=== PATIENT | male | born 1940 | race African-American/Black ===

== ENCOUNTER → 2018-04-06 | Outpatient (CLI) | payer BC, MEDICARE ==
--- NOTE | 2018-04-06 08:43 | RADIOLOGY REPORT (SQ) ---
EXAM DESCRIPTION: CT ABD/PELVIS NO ORAL OR IV COMPLETED DATE/TIME: 04/06/2018 7:25 am REASON FOR STUDY: URINARY CALCULUS (N20.9) N20.9 URINARY CALCULUS, UNSPECIFIED COMPARISON: None. TECHNIQUE: CT scan of the abdomen and pelvis performed without intravenous or oral contrast. Images reviewed with lung, soft tissue, and bone windows. Reconstructed coronal and sagittal MPR images revi ewed. All images stored on PACS. All CT scanners at this facility use dose modulation, iterative reconstruction, and/or weight based d osing when appropriate to reduce radiation dose to as low as reasonably achievable (ALARA). [facility]: Dose Right [facility]: CareDose [facility]: Dose Right [facility]: Teradose 4D [facility]: [employer] RADIATION DOSE: CT Rad equipment meets quality standard of care and radiation dose reduction techniq ues were employed. CTDIvol: 8.7 mGy. DLP: 491 mGy-cm.mGy. LIMITATIONS: None. FINDINGS: LOWER CHEST: Linear densities in lung bases consistent with chronic scarring. Coronary ar phoebe calcification. NON-CONTRASTED LIVER, SPLEEN, ADRENALS: LIVER:No abnormality seen. SPLEEN: No abnormality seen. A DRENALS: No abnormality seen. PANCREAS: No abnormality seen. GALLBLADDER: No abnormality seen RIGHT KIDNEY AND URETER: Multiple cortical and parapelvic cysts of the right kidney. Cortical cyst u pper pole right kidney with wall calcification LEFT KIDNEY AND URETER: Multiple cortical and parapelvic cysts of the left kidney. AORTA AND RETROPERITONEUM: Atherosclerotic change of the abdominal aorta, iliac ,and femoral vessels . BOWEL AND PERITONEAL CAVITY: No obvious masses or inflammatory changes. No free fluid. APPENDIX: Normal. PELVIS, BLADDER, AND ABDOMINAL WALL :URINARY BLADDER: There is thickening of the bladder wall drug abuse counselor ior left side. The possibility mucosal abnormality is not excluded. Mild ectasia of the distal left ureter in this region noted. There is a diverticulum noted from the posterior bladder at the UV ju nction on the left and 2 diverticuli adjacent to the UV junction on the right. PROSTATE: Prostate seeds in place. LARGE AND SMALL BOWEL: Changes of left inguinal hernia containing colon. Diverticu losis. BONES: Multilevel lumbar spondylosis with degenerative disc disease. 6 lumbar type vertebra. Degene rative disc disease from L4- L6. Degenerative anterolisthesis of L5 on L6. Degenerative anterolisth esis of L4 on L5. Relative narrowing of the spinal canal consistent with spinal stenosis at L4-5 and L5-6. Developmental deformity of the sacrum. IMPRESSION: 1. There is asymmetric thickening of the mucosa of the posterior left side of the urina ry bladder with ectasia of distal left ureter at UV junction. The possibility of mucosal abnormality in this region cannot be excluded. Consider urologyconsult. Status post brachytherapy of the prost ate. 2. Left inguinal hernia containing loop of rectosigmoid colon. 3. Multiple cortical and parapelvic cysts of the kidneys. COMMENT: Quality ID # [id number]: Final reports with documentation of one or more dose reduction techniques (e.g., Automated exposure control, adjustment of the mA and/or kV according to patient size, use of iterative reconstruction technique) TECHNICAL DOCUMENTATION: JOB ID: [id number] SC-69 2010 [employer]- All Rights Reserved Reading location - IP/workstation name: [email or web address]
== END ==
LOC: RAD 07:06
PROVIDERS: ATTEND Family Medicine
DX: N20.9 Urinary calculus, unspecified (principal); N32.3 Diverticulum of bladder; K40.90 Unilateral inguinal hernia, without obstruction or gangrene, not specified as recurrent; Q61.02 Congenital multiple renal cysts; K57.90 Diverticulosis of intestine, part unspecified, without perforation or abscess without bleeding
CPT/HCPCS: 74176

== ENCOUNTER → 2018-05-20 | Outpatient (CLI) | payer MEDICARE ==
--- NOTE | 2018-05-20 10:43 | RADIOLOGY REPORT (SQ) ---
EXAM DESCRIPTION: CT ABD/PELVIS WITH IV ONLY COMPLETED DATE/TIME: 05/20/2018 10:14 am REASON FOR STUDY: HEMATURIA (R31.9) R31.9 HEMATURIA, UNSPECIFIED COMPARISON: 04/06/2018 TECHNIQUE: CT scan of the abdomen and pelvis performed using helical scanning technique with dynamic intravenous contrast injection. No oral contrast. Images reviewed with lung, soft tissue, and bone windows. Reconstructed coronal and sagittal MPR images reviewed. Delayed images for evaluation of the urinary system also acquired. All images stored on PACS. All CT scanners at this facility use dose modulation, iterative reconstruction, and/or weight based d osing when appropriate to reduce radiation dose to as low as reasonably achievable (ALARA). [facility]: Dose Right [facility]: CareDose [facility]: Dose Right [facility]: Teradose 4D [facility]: [employer] CONTRAST TYPE AND DOSE: contrast/concentration: Isovue 300.00 mg/ml; Total Contrast Delivered: 95.0 ml; Total Saline Delivered: 71.0 ml RENAL FUNCTION: Creatinine 1.6 RADIATION DOSE: CT Rad equipment meets quality standard of care and radiation dose reduction techniq ues were employed. CTDIvol: NaN - NaN mGy. DLP: 0 mGy-cm.. LIMITATIONS: None. FINDINGS: LOWER CHEST: There is a 4.8 mm nodule in the right middle lobe. This appears new from ariane or study. It possibly represents focal atelectasis or scarring. Please see below for recommended fo llow-up. LIVER: Normal size. No masses. No dilated ducts. SPLEEN: Normal size. No focal lesions. PANCREAS: No masses. No significant calcifications. No adjacent inflammation or peripancreatic fluid collections. Pancreatic duct not dilated. GALLBLADDER: No identified stones by CT criteria. No inflammatory changes to suggest cholecystitis. ADRENAL GLANDS: No significant masses or asymmetry. RIGHT KIDNEY AND URETER: No solid masses. Multiple parapelvic and cortical cysts. No significant c alcifications. No hydronephrosis or hydroureter. LEFT KIDNEY AND URETER: No solid masses. Multiple parapelvic and cortical cysts. No significant ca lcifications. No hydronephrosis or hydroureter. AORTA AND VESSELS: No aneurysm. No dissection. Renal arteries, SMA, celiac without stenosis. RETROPERITONEUM: No retroperitoneal adenopathy, hemorrhage or masses. BOWEL AND PERITONEAL CAVITY: No masses or inflammatory changes. No free fluid or peritoneal masses. APPENDIX: Normal. PELVIS: There is an enhancing bladder mass. This measures approximately 4 x 2.4 cm in greatest diame ter. Prostate implant seeds are again noted. ABDOMINAL WALL: Left inguinal hernia is again noted containing colon. BONES: No significant or acute findings. OTHER: No other significant finding. IMPRESSION: Enhancing bladder mass along the left posterolateral wall. Recommend cystoscopy for fur ther evaluation. Multiple stable bilateral cortical and parapelvic cysts. TECHNICAL DOCUMENTATION: JOB ID: [id number] Quality ID # [id number]: Final reports with documentation of one or more dose reduction techniques (e.g., Au tomated exposure control, adjustment of the mA and/or kV according to patient size, use of iterative reconstruction technique) 2010 [employer]- All Rights Reserved Reading location - IP/workstation name: [email or web address]
== END ==
LOC: RAD 09:25
PROVIDERS: ATTEND Urology
DX: R31.9 Hematuria, unspecified (principal)
CPT/HCPCS: 74177; 82565

== ENCOUNTER → 2018-07-22 | Outpatient (CLI) | payer MEDICARE ==
--- NOTE | 2018-07-22 14:35 | RADIOLOGY REPORT (SQ) ---
EXAM DESCRIPTION: U/S RETROPERITON (RENAL/AORTA) COMPLETED DATE/TIME: 07/22/2018 2:24 pm REASON FOR STUDY: UNSPECIFIED HYDRONEPHROSIS,GROSS HEMATURIA N13.30 UNSPECIFIED HYDRONEPHROSIS R31. 0 GROSS HEMATURIA COMPARISON: CT abdomen pelvis dated 05/20/2018 TECHNIQUE: Dynamic and static grayscale images acquired of the kidneys and bladder and recorded on P ACS. Additional selected color Doppler and spectral images recorded. LIMITATIONS: None. FINDINGS: RIGHT KIDNEY: The right kidney measures 14.1 cm in length. Normal echogenicity. Multi ple right renal cysts. The largest measures 5.5 x 5.2 x 6.2 cm. No hydronephrosis. No calcificat ions. LEFT KIDNEY: The left kidney measures 13.4 cm in length. Normal echogenicity. Multiple left isabella l cysts. The largest measures 5.2 x 4.9 x 3.7 cm. There is mild dilatation of the left renal pelvi s and calices which is unchanged from prior CT. No calcifications. BLADDER: Bladder mass demonstrated on CT is poorly visualized. OTHER FINDINGS: No other significant finding. IMPRESSION: 1. Bilateral renal cysts. Persistent dilatation of the left renal pelvis. 2. Bladder mass noted on prior CT is not appreciated. TECHNICAL DOCUMENTATION: JOB ID: [id number] [employer]- All Rights Reserved Reading location - IP/workstation name: [email or web address]
[2018-07-22 15:31] LABS: ANION GAP 10 (5-19); BLOOD UREA NITROGEN 29 mg/dL (7-20); CALCIUM 9.5 mg/dL (8.4-10.2); CARBON DIOXIDE 26 mmol/L (22-30); CHLORIDE 103 mmol/L (98-107); GLUCOSE 86 mg/dL (75-110); POTASSIUM 4.4 mmol/L (3.6-5.0); SODIUM 138.6 mmol/L (137-145)
== END ==
LOC: RAD 13:26
PROVIDERS: ATTEND Urology
DX: N13.30 Unspecified hydronephrosis (principal); R31.0 Gross hematuria; N28.1 Cyst of kidney, acquired
CPT/HCPCS: 36415; 76770; 80048

== ENCOUNTER 2018-08-31 00:41 | Emergency (ER) | payer MEDICARE ==
[2018-08-31] MEDS ORDERED: LIDOCAINE 2% URO-JET 5 ML KIT MM ONE (02:49)
--- NOTE | 2018-08-31 03:42 | ER Document Report ---
ED General - General TRAVEL OUTSIDE OF THE [place] IN LAST 30 DAYS: No - General Chief Complaint: Urinary Retention Stated Complaint: TROUBLE URNIATING Time Seen by Provider: 08/31/18 02:18 Primary Care Provider: ZAKIYA DRUMMOND MD [Primary Care Provider] - Follow up as needed Notes: Patient is a 78-year-old male with past medical history of bladder cancer who presents with difficulty urinating and having hematuria. Patient states that he has had this many times in the past, follows at [facility] for bladder cancer. Has had to have a catheter placed in the past due to this issue. Describes a throbbing, aching, constant discomfort to his suprapubic abdominal quadrant worsened when he feels that he is unable to urinate. States that he is passing small amounts of blood clots intermittently but is mostly having red urine. The patient denies fever, flank pain or vomiting. Has not contacted his primary care doctor regarding today's concerns. Regards symptoms as being severe and constant. (GUILLERMO HANNA) - Related Data Allergies/Adverse Reactions: No Known Allergies Allergy (Verified 08/31/18 00:42) Past Medical History - General Information source: Patient - Social History Smoking Status: Never Smoker Frequency of alcohol use: None Drug Abuse: None Lives with: Spouse/Significant other Family History: Reviewed & Not Pertinent Patient has suicidal ideation: No Patient has homicidal ideation: No - Past Medical History Cardiac Medical History: Reports: Hx Hypertension Renal/ Medical History: Denies: Hx Peritoneal Dialysis Review of Systems - Review of Systems Notes: Constitutional: Negative for fever. HENT: Negative for sore throat. Eyes: Negative for visual changes. Cardiovascular: Negative for chest pain. Respiratory: Negative for shortness of breath. Gastrointestinal: Positive for suprapubic abdominal discomfort Genitourinary: Positive for hematuria Musculoskeletal: Negative for back pain. Skin: Negative for rash. Neurological: Negative for headaches, weakness or numbness. 10 point ROS negative except as marked above and in HPI. (GUILLERMO HANNA) Physical Exam - Vital signs Interpretation: Hypertensive - Vital signs Vitals: Temp Pulse Resp BP Pulse Ox 98.2 F 95 20 174/89 H 97 08/31/18 00:47 08/31/18 00:47 08/31/18 00:47 08/31/18 00:47 08/31/18 00:47 Notes: PHYSICAL EXAMINATION: GENERAL: Well-appearing, well-nourished and in no acute distress. HEAD: Atraumatic, normocephalic. EYES: Pupils equal round and reactive to light, extraocular movements intact, sclera anicteric, conjunctiva are normal. ENT: nares patent, oropharynx clear without exudates. Moist mucous membranes. NECK: Normal range of motion, supple without lymphadenopathy LUNGS: Breath sounds clear to auscultation bilaterally and equal. No wheezes rales or rhonchi. HEART: Regular rate and rhythm without murmurs ABDOMEN: Soft, nontender, normoactive bowel sounds. No guarding, no rebound. No masses appreciated. EXTREMITIES: Normal range of motion, no pitting or edema. No cyanosis. NEUROLOGICAL: No focal neurological deficits. Moves all extremities spontaneously and on command. PSYCH: Normal mood, normal affect. SKIN: Warm, Dry, normal turgor, no rashes or lesions noted. (GUILLERMO HANNA) Course - Re-evaluation Re-evalutation: 08/31/18 03:44 Patient presents with acute urinary retention in the setting of bladder cancer and hematuria. Rubio catheter was placed after patient had just attempted to urinate and 500 cc of urine was removed. Rubio catheter will remain in place with a leg bag to prevent further urinary retention and he will follow-up with urology for trial of void. Urinalysis is pending. Suspect that this is likely secondary to underlying bladder cancer and patient likewise states this is exactly the same as when this is happened in the past. (GUILLERMO HANNA) 08/31/18 05:35 Patient's urinalysis is negative for infection. He has some white blood cells but no back to be in the urine and no leukocyte Estrace. His urine has been sent for culture. I informed patient and his that if it grows out a bacteria that needs treatment we would call him immediately. Does not have a fever and overall looks very well. Evaluation of his catheter bag shows the urine is becoming much more clear and only has very slight du color to it. I informed him of Dr. Hanna's plan to keep the catheter in place. Informed patient follow-up with his doctor next to 3 days for reevaluation and possible catheter removal. If he is unable to follow-up with his doctor then he can return here and we will reevaluate him determine whether not catheter removed at that time. Patient agrees with plan will be discharged home. Patient to return to ER immediately if he has severe pain, inability to pass urine to the catheter, fevers, or if he feels unwell. Dictation of this chart was performed using voice recognition software; therefore, there may be some unintended grammatical errors. (GUILLERMO ARELLANO) - Vital Signs Vital signs: Temp Pulse Resp BP Pulse Ox 98.2 F 95 20 174/89 H 97 08/31/18 00:47 08/31/18 00:47 08/31/18 00:47 08/31/18 00:47 08/31/18 00:47 - Laboratory Laboratory results interpreted by me: 08/31/18 03:15 Urine Protein 30 H Urine Blood LARGE H Discharge - Discharge Clinical Impression: Urinary retention Hematuria Qualifiers: Hematuria type: gross Qualified Code(s): R31.0 - Gross hematuria Condition: Good Disposition: HOME, SELF-CARE Additional Instructions: Please follow-up with your urologist within the next 48 hours for a trial of void to see if the catheter can come out. Return if you have a fever of greater than 100.4 F, worsening pain, stop passing urine into the catheter, or have any other symptoms that are worrisome to you. Referrals: ZAKIYA DRUMMOND MD [Primary Care Provider] - Follow up as needed
[2018-08-31 05:14] LABS: BILIRUBIN,URINE NEGATIVE (NEGATIVE); GLUCOSE, URINE NEGATIVE (NEGATIVE); KETONES,URINE NEGATIVE (NEGATIVE); LEUKOCYTE ESTERASE,URINE NEGATIVE (NEGATIVE); NITRITE,URINE NEGATIVE (NEGATIVE); PROTEIN,URINE 30 mg/dL (NEGATIVE); URINE SPECIFIC GRAVITY 1.005; UROBILINOGEN,URINE NEGATIVE mg/dL (<2.0)
[2018-08-31 05:16] LABS: COLOR,URINE RED
[2018-08-31 05:17] LABS: APPEARANCE,URINE TURBID
[2018-08-31 05:44] VITALS: BP 136/76
== END 2018-08-31 05:45 | disposition home or self-care (01) ==
LOC: ER 00:41
DX: R33.9 Retention of urine, unspecified (principal); C67.9 Malignant neoplasm of bladder, unspecified; R31.0 Gross hematuria; I10 Essential (primary) hypertension; Z85.51 Personal history of malignant neoplasm of bladder
CPT/HCPCS: 99283; 51702; 87086; 81001; A9270; J3490

== ENCOUNTER 2018-08-31 20:22 | Emergency (ER) | payer MEDICARE ==
[2018-08-31 20:38] VITALS: BP 159/94
--- NOTE | 2018-08-31 23:04 | ER Document Report ---
ED Medical Screen (RME) - General Chief Complaint: Problem with Urinary Catheter Stated Complaint: CATHETER PROBLEM Time Seen by Provider: 08/31/18 23:00 Primary Care Provider: ZAKIYA DRUMMOND MD [Primary Care Provider] - Follow up as needed Mode of Arrival: Ambulatory Information source: Patient Notes: Patient was discharged from the ED with a Rubio catheter placed due to hematuria and an inability to void. Patient presents tonight with complaints that he is having leakage around the Rubio from his penis does have dean colored urine to leg bag as well. Patient states that he has noticed some small clots to the back. Patient denies any abdominal pain or feeling as though he needs to void. I have greeted and performed a rapid initial assessment of this patient. A comprehensive ED assessment and evaluation of the patient, analysis of test results and completion of the medical decision making process will be conducted by additional ED providers. TRAVEL OUTSIDE OF THE [place].S. IN LAST 30 DAYS: No - Related Data Allergies/Adverse Reactions: No Known Allergies Allergy (Verified 08/31/18 00:42) Past Medical History - Social History Frequency of alcohol use: None Drug Abuse: None - Past Medical History Cardiac Medical History: Reports: Hx Hypertension Renal/ Medical History: Denies: Hx Peritoneal Dialysis Past Surgical History: Reports: Hx Orthopedic Surgery - left knee replacement, Hx Urinary Tract Surgery - bladder surgery Physical Exam - Vital signs Vitals: Temp Pulse Resp BP Pulse Ox 98.5 F 78 17 159/94 H 94 08/31/18 20:36 08/31/18 20:36 08/31/18 20:36 08/31/18 20:36 08/31/18 20:36 - General Notes: Rubio leg bag with dean colored urine Course - Vital Signs Vital signs: Temp Pulse Resp BP Pulse Ox 98.5 F 78 17 159/94 H 94 08/31/18 20:36 08/31/18 20:36 08/31/18 20:36 08/31/18 20:36 08/31/18 20:36 Doctor's Discharge - Discharge Referrals: ZAKIYA DRUMMOND MD [Primary Care Provider] - Follow up as needed
--- NOTE | 2018-09-01 02:20 | ER Document Report ---
ED General - General Chief Complaint: Problem with Urinary Catheter Stated Complaint: CATHETER PROBLEM Time Seen by Provider: 08/31/18 23:00 Primary Care Provider: ZAKIYA DRUMMOND MD [Primary Care Provider] - Follow up as needed Mode of Arrival: Ambulatory Notes: Patient is a 78-year-old male who presents emergency department with a chief complaint of leakage from around his urinary catheter. He had a urinary catheter placed yesterday hematuria with clots. He denies any fever, or any other symptoms. He does states that it is draining at this time and since he was seen in triage she has not had any leakage around his catheter. TRAVEL OUTSIDE OF THE [place] IN LAST 30 DAYS: No - Related Data Allergies/Adverse Reactions: No Known Allergies Allergy (Verified 08/31/18 00:42) Past Medical History - General Information source: Patient - Social History Smoking Status: Never Smoker Frequency of alcohol use: None Drug Abuse: None Family History: Reviewed & Not Pertinent Patient has suicidal ideation: No Patient has homicidal ideation: No - Past Medical History Cardiac Medical History: Reports: Hx Hypertension Renal/ Medical History: Denies: Hx Peritoneal Dialysis Past Surgical History: Reports: Hx Orthopedic Surgery - left knee replacement, Hx Urinary Tract Surgery - bladder surgery Review of Systems - Review of Systems Notes: REVIEW OF SYSTEMS: CONSTITUTIONAL : Denies recent illness. Denies recent unintentional weight loss. Denies fever, chills, or sweats. EENT: Denies eye, ear, throat, or mouth pain, discharge, or symptoms. Denies nasal or sinus congestion. CARDIOVASCULAR: Denies chest pain. RESPIRATORY: Denies shortness of breath, cough, congestion, difficulty breathing, or wheezing. GASTROINTESTINAL: Denies nausea, vomiting, and diarrhea. Denies abdominal pain. Denies constipation. GENITOURINARY: See HPI MUSCULOSKELETAL: Denies neck and back pain. Denies joint pain or swelling. SKIN: Denies rash, itchiness, or lesions HEMATOLOGIC : Denies easy bruising or bleeding. LYMPHATIC: Denies swollen, painful, enlarged glands. NEUROLOGICAL: Denies no numbness or tingling denies weakness. Denies headache. Denies altered mental status. Denies alteration in speech. PSYCHIATRIC: Denies stress, anxiety, alteration in sleep patterns, or depression. All other systems reviewed and negative. Physical Exam - Vital signs Vitals: Temp Pulse Resp BP Pulse Ox 98.5 F 78 17 159/94 H 94 08/31/18 20:36 08/31/18 20:36 08/31/18 20:36 08/31/18 20:36 08/31/18 20:36 - Notes Notes: PHYSICAL EXAMINATION: GENERAL: Appears well, healthy, well-nourished, no acute distress. HEAD: Normocephalic, atraumatic. EYES: PERRL, conjunctiva normal, all extraocular movements intact, sclera nonicteric ENT: Moist mucous membranes. NECK: Supple, no noticeable swelling, redness, rash. Normal range of motion. LUNGS: Equal breath sounds bilaterally and clear to auscultation. No wheezes rales or rhonchi. CARDIOVASCULAR: S1-S2, regular rate, regular rhythm. Radial pulses 2+, normal. ABDOMEN: Normoactive bowel sounds. Soft, nontender, no guarding, no rebound tenderness, and no masses palpated. EXTREMITIES: Normal strength and range of motion, no pitting or edema. No cyanosis. NEUROLOGICAL: Moves all extremities upon command. Strength 5/5 in all extremities. PSYCH: Normal mood, normal affect. SKIN: Warm, dry. No rash, lesions, ulcerations noted. Normal skin turgor. : Urinary catheter in place with hematuria noted, no clots noted. Course - Re-evaluation Re-evalutation: 09/01/18 02:47 The nursing staff had to flush the Rubio catheter and was meeting resistance and more leakage was noted. We will take out the current history of Rubio catheter and replace it with a larger Pashto Rubio catheter. 09/01/18 03:19 Patient's Rubio catheter was removed and another urinary catheter was placed successfully. It is flowing well with no resistance met upon flushing. I do not suspect patient has any life-threatening etiology at this time. Verbal discharge instructions were given to the patient. They verbalized understanding. They are stable for discharge. - Vital Signs Vital signs: Temp Pulse Resp BP Pulse Ox 98.5 F 78 17 159/94 H 94 08/31/18 20:36 08/31/18 20:36 08/31/18 20:36 08/31/18 20:36 08/31/18 20:36 Discharge - Discharge Clinical Impression: Problem with urinary catheter Condition: Stable Disposition: HOME, SELF-CARE Additional Instructions: You were seen today in the emergency department for your urinary catheter leaking. Your catheter was changed here in the emergency department. Please follow-up with urology or the emergency department as directed from yesterday's visit. Referrals: ZAKIYA DRUMMOND MD [Primary Care Provider] - Follow up as needed
== END 2018-09-01 04:00 | disposition home or self-care (01) ==
LOC: ER 20:22
DX: T83.031A Leakage of indwelling urethral catheter, initial encounter (principal); Y84.6 Urinary catheterization as the cause of abnormal reaction of the patient, or of later complication, without mention of misadventure at the time of the procedure; I10 Essential (primary) hypertension
CPT/HCPCS: 51702; 99283

== ENCOUNTER 2018-09-05 16:00 | Emergency (ER) | payer MEDICARE ==
--- NOTE | 2018-09-05 19:17 | ER Document Report ---
Addendum entered and electronically signed by DARRICK SHARP PA-C 09/05/18 19:19: Course - Re-evaluation Re-evalutation: 09/05/18 19:17 Pt urinated and is gross hematuria and approx 90cc's. Pt does not feel like he had an incomplete void. - Vital Signs Vital signs: Temp Pulse Resp BP Pulse Ox 98.1 F 65 20 133/76 H 98 09/05/18 16:29 09/05/18 16:29 09/05/18 16:29 09/05/18 16:29 09/05/18 16:29 Original Note: ED Medical Screen (RME) - General Chief Complaint: Urinary Retention Stated Complaint: URINARY RETENSION Time Seen by Provider: 09/05/18 19:12 Primary Care Provider: ZAKIYA DRUMMOND MD [Primary Care Provider] - Follow up as needed TRAVEL OUTSIDE OF THE [place].S. IN LAST 30 DAYS: No - HPI Notes: 09/05/18 19:13 Patient is a 78-year-old male with a history of bladder cancer who presents requesting placement of a Rubio catheter. Patient states that he has been having urinary retention issues over the past 24 hours with hematuria noted. He was seen last week for similar symptoms and had a Rubio placed. Patient had the Rubio removed on Wednesday by his urologist and was noted to be able to void without difficulty at that time. Patient states that he had trouble urinating primarily this morning which has since improved, but patient does not want to go through symptoms like he did previously and would like a Rubio placed. He does have an appointment with his urologist next month for his bladder to be removed at [place]. He is otherwise eating and drinking without difficulty. Denies LARIOS, fever, neck pain, URI, CP, SOB, Abd pain, back pain, or rash. Pt states he called his urologist who wanted him eval'd for cath placement as their office was closing. I have treated and performed a rapid initial assessment of this patient. A comprehensive ED assessment and evaluation of the patient, analysis of test results and completion of medical decision making process will be conducted by additional ED providers. PHYSICAL EXAMINATION: GENERAL: Well-appearing, well-nourished and in no acute distress. A&Ox4. Answers questions appropriately. LUNGS: Breath sounds clear to auscultation bilaterally and equal. No wheezes rales or rhonchi. HEART: Regular rate and rhythm without murmurs, rubs, gallops. - Related Data Allergies/Adverse Reactions: No Known Allergies Allergy (Verified 08/31/18 00:42) Past Medical History - Past Medical History Cardiac Medical History: Reports: Hx Hypertension Renal/ Medical History: Denies: Hx Peritoneal Dialysis Past Surgical History: Reports: Hx Orthopedic Surgery - left knee replacement, Hx Urinary Tract Surgery - bladder surgery Physical Exam - Vital signs Vitals: Temp Pulse Resp BP Pulse Ox 98.1 F 65 20 133/76 H 98 09/05/18 16:29 09/05/18 16:29 09/05/18 16:29 09/05/18 16:29 09/05/18 16:29 Course - Vital Signs Vital signs: Temp Pulse Resp BP Pulse Ox 98.1 F 65 20 133/76 H 98 09/05/18 16:29 09/05/18 16:29 09/05/18 16:29 09/05/18 16:29 09/05/18 16:29 Doctor's Discharge - Discharge Referrals: ZAKIYA DRUMMOND MD [Primary Care Provider] - Follow up as needed
[2018-09-05 19:56] LABS: APPEARANCE,URINE SLIGHTLY-CLOUDY; BILIRUBIN,URINE NEGATIVE (NEGATIVE); COLOR,URINE RED; GLUCOSE, URINE 50 mg/dL (NEGATIVE); KETONES,URINE NEGATIVE (NEGATIVE); LEUKOCYTE ESTERASE,URINE MODERATE (NEGATIVE); NITRITE,URINE NEGATIVE (NEGATIVE); PROTEIN,URINE 100 mg/dL (NEGATIVE); URINE SPECIFIC GRAVITY 1.004; UROBILINOGEN,URINE NEGATIVE mg/dL (<2.0)
[2018-09-05] MEDS ORDERED: LIDOCAINE 2% URO-JET 5 ML KIT MM ONE (22:19)
--- NOTE | 2018-09-05 22:42 | ER Document Report ---
ED General - General Chief Complaint: Urinary Retention Stated Complaint: URINARY RETENSION Time Seen by Provider: 09/05/18 19:12 Primary Care Provider: ZAKIYA DRUMMOND MD [Primary Care Provider] - Follow up as needed Notes: Patient is a 78-year-old male with a history of bladder cancer who presents requesting placement of a Rubio catheter. Patient states that he has been having urinary retention issues over the past 24 hours with hematuria noted. He was seen last week for similar symptoms and had a Rubio placed. Patient had the Rubio removed on Wednesday by his urologist and was noted to be able to void with out difficulty at that time. Patient states that he had trouble urinating primarily this morning which has since improved, but patient does not want to go through symptoms like he did previously and would like a Rubio placed. He does have an appointment with his urologist next month for his bladder to be removed at [place]. He is otherwise eating and drinking without difficulty. Denies LARIOS, fever, neck pain, URI, CP, SOB, Abd pain, back pain, or rash. Pt states he called his urologist who wanted him eval'd for cath placement as their office was closing. TRAVEL OUTSIDE OF THE [place] IN LAST 30 DAYS: No - HPI Onset: Other Onset/Duration: Gradual Quality of pain: No pain Severity: None Pain Level: Denies Associated symptoms: None. denies: Chest pain, Diarrhea, Fever, Nausea, Vomiting, Shortness of breath Exacerbated by: Denies Relieved by: Denies Similar symptoms previously: Yes Recently seen / treated by doctor: Yes - Related Data Allergies/Adverse Reactions: No Known Allergies Allergy (Verified 08/31/18 00:42) Past Medical History - General Information source: Patient, Relative, [facility] Records - Social History Smoking Status: Never Smoker Chew tobacco use (# tins/day): No Frequency of alcohol use: None Drug Abuse: None Lives with: Family Family History: Reviewed & Not Pertinent Patient has suicidal ideation: No Patient has homicidal ideation: No - Past Medical History Cardiac Medical History: Reports: Hx Hypertension Renal/ Medical History: Denies: Hx Peritoneal Dialysis Past Surgical History: Reports: Hx Orthopedic Surgery - left knee replacement, Hx Urinary Tract Surgery - bladder surgery Review of Systems - Review of Systems Notes: REVIEW OF SYSTEMS: CONSTITUTIONAL : Denies fever, chills, or sweats. Denies recent illness. Denies weight loss, recent hospitalizations. EENT: Denies visual changes, eye pain. Denies sore throat, oral lesions, difficulty swallowing. CARDIOVASCULAR: Denies chest pain. Denies palpitations. Denies lower extremity edema. RESPIRATORY: Denies cough. Denies shortness of breath, wheezing. GASTROINTESTINAL: Denies abdominal pain or distention. Denies nausea, vomiting, or diarrhea. Denies blood in vomitus, stools, or per rectum. Denies black, tarry stools. Denies constipation. GENITOURINARY: + difficulty urinating, denies painful urination, frequency, +blood in urine, testicular pain or penile discharge. MUSCULOSKELETAL: Denies back or neck pain or stiffness. Denies joint pain or swelling. SKIN: Denies rash, lesions or sores. HEMATOLOGIC : Denies easy bruising or bleeding. LYMPHATIC: Denies swollen glands. NEUROLOGICAL: Denies confusion or altered mental status. Denies loss of consciousness. Denies dizziness or lightheadedness. Denies headache. Denies weakness or paralysis. Denies problems difficulty with ambulation, slurred speech. Denies sensory loss, numbness, or tingling. Denies seizures. PSYCHIATRIC: Denies anxiety or stress. Denies depression, suicidal ideation, or Physical Exam - Vital signs Vitals: Temp Pulse Resp BP Pulse Ox 98.1 F 65 20 133/76 H 98 09/05/18 16:29 09/05/18 16:29 09/05/18 16:29 09/05/18 16:29 09/05/18 16:29 - Notes Notes: PHYSICAL EXAMINATION: GENERAL: Well-appearing, well-nourished and in no acute distress. HEAD: Atraumatic, normocephalic. EYES: Pupils equal round and reactive to light, extraocular movements intact, sclera anicteric, conjunctiva are normal. ENT: Nares patent, oropharynx clear without exudates. Moist mucous membranes. NECK: Normal range of motion, supple without lymphadenopathy LUNGS: Breath sounds clear to auscultation bilaterally and equal. No wheezes rales or rhonchi. HEART: Regular rate and rhythm without murmurs ABDOMEN: Soft, nontender, nondistended abdomen. No guarding, no rebound. No masses appreciated. Musculoskeletal: Normal range of motion, no pitting or edema. No cyanosis. NEUROLOGICAL: Cranial nerves grossly intact. Normal speech, normal gait. Normal sensory, motor exams PSYCH: Normal mood, normal affect. SKIN: Warm, Dry, normal turgor, no rashes or lesions noted. Course - Re-evaluation Re-evalutation: Laboratory 09/05/18 19:20 Urine Color RED Urine Appearance SLIGHTLY-CLOUDY Urine pH 7.0 Ur Specific [place] 1.004 Urine Protein 100 H Urine Glucose (UA) 50 H Urine Ketones NEGATIVE Urine Blood LARGE H Urine Nitrite NEGATIVE Urine Bilirubin NEGATIVE Urine Urobilinogen NEGATIVE Ur Leukocyte Esterase MODERATE H Urine WBC (Auto) 108 Urine RBC (Auto) >182 Urine Bacteria (Auto) TRACE Urine WBC Clumps OCC Urine Mucus (Auto) RARE Urine Ascorbic Acid NEGATIVE Temp Pulse Resp BP Pulse Ox 98.1 F 58 L 16 138/75 H 99 09/05/18 16:29 09/05/18 21:42 09/05/18 21:42 09/05/18 21:42 09/05/18 21:42 09/05/18 23:31 78-year-old male with known bladder cancer currently under urology care presents with request for "Rubio catheter placement. Patient has had hematuria, intermittent urinary retention and states that he would like another Rubio placed. He did speak to his urologist who is agreeable with to this. Patient does have an appointment with his urologist for further treatment this week. Rubio cath was placed after using [employer]. This was done without difficulty. Patient is happy and tolerated the procedure well. Rubio cath care given. Urinalysis is consistent with urinary tract infection but this is likely chronic due to recurrent Rubio catheters. Urine culture pending. Patient was evaluated and treated as appropriate for the patient's presenting symptoms and complaint, with consideration of any critical or life threatening conditions that may be associated with their obtained history and exam as noted above. All results were discussed with patient and his family member who is at the bedside. Patient provided the opportunity to ask questions, and express concerns. Patient was educated on treatments based on their presumed diagnosis as noted above. At this time we will discharge the patient with return precautions and follow-up recommendations. Verbal discharge instructions given a the bedside. Medication warnings reviewed. Patient is in agreement with this plan and has verbalized understanding of return precautions. After careful consideration I feel that that patient can be safely discharged from the emergency department, they were advised to followup with a primary care physician in 2-3 days. Dictation on this chart was performed using voice recognition software and may result in unintended grammatical, spelling, syntax or errors. - Vital Signs Vital signs: Temp Pulse Resp BP Pulse Ox 98.1 F 58 L 16 138/75 H 99 09/05/18 16:29 09/05/18 21:42 09/05/18 21:42 09/05/18 21:42 09/05/18 21:42 - Laboratory Laboratory results interpreted by me: 09/05/18 19:20 Urine Protein 100 H Urine Glucose (UA) 50 H Urine Blood LARGE H Ur Leukocyte Esterase MODERATE H Discharge - Discharge Clinical Impression: Urinary retention, History of bladder cancer Hematuria Qualifiers: Hematuria type: unspecified type Qualified Code(s): R31.9 - Hematuria, unspecified Condition: Good Disposition: HOME, SELF-CARE Instructions: Rubio Catheter Care ([facility]), Urinary Retention ([facility]) Additional Instructions: Please follow-up with your urologist as already scheduled. Please return to the emergency department if you develop a fever greater than 101 or you are not draining urine from your Rubio. Return with any other symptoms concerning to you. Forms: Elevated Blood Pressure Referrals: ZAKIYA DRUMMOND MD [Primary Care Provider] - Follow up as needed
[2018-09-05 23:51] VITALS: BP 148/88
== END 2018-09-05 23:50 | disposition home or self-care (01) ==
LOC: ER 16:00
DX: R33.9 Retention of urine, unspecified (principal); I10 Essential (primary) hypertension; R31.9 Hematuria, unspecified; Z96.652 Presence of left artificial knee joint; Z85.51 Personal history of malignant neoplasm of bladder
CPT/HCPCS: 99283; 51702; 87086; 81001; A9270; J3490